=== PATIENT | female | born 1955 | race Two or more races ===

== ENCOUNTER 2022-05-29 16:15 | Emergency (ER) | payer MEDICARE ==
[~2022-05-29] VITALS: Ht 154.9 cm; Wt 64.4 kg
--- NOTE | 2022-05-29 16:30 | NUR ---
RECEVED PT 67 yrs female came from home c/o chest pain for 3 days goting worther today no sob or resopratory distres
--- NOTE | 2022-05-29 16:31 | NUR ---
EKG DONE AT BED SIDE
--- NOTE | 2022-05-29 16:45 | NUR ---
SEEN BY DR. HAYDEN
--- NOTE | 2022-05-29 17:20 | NUR ---
INSERTED ANGO CATHTER G 20 ON LT AC BLOOD DROW AAND SSENT TO LAB
[2022-05-29 17:56] LABS: BASOPHILS % (AUTO) 0.5 % (0.0-2.0); EOSINOPHILS % (AUTO) 2.9 % (0.0-6.0); HEMATOCRIT 38 % (33-45); HEMOGLOBIN 12.8 g/dL (11.5-14.8); LYMPHOCYTES # (AUTO) 1.2 K/uL (0.8-4.8); MEAN CORPUSCULAR HGB CONC 33 g/dl (31.0-36.0); MEAN CORPUSCULAR VOLUME 92 fL (82-100); MONOCYTES # (AUTO) 0.5 K/uL (0.1-1.30); MONOCYTES % (AUTO) 8.6 % (2.0-12.0); NEUTROPHILS # (AUTO) 4.4 K/uL (1.8-8.9); PLATELET COUNT (AUTO) 225 K/uL (150-450); RED BLOOD CELL COUNT(AUTO) 4.18 MIL/uL (4.0-5.2); WHITE BLOOD COUNT (AUTO) 6.4 K/uL (4.3-11.0)
[2022-05-29 18:09] LABS: CALCIUM, SERUM 9.1 mg/dL (8.5-10.1); CARBON DIOXIDE 30 mmol/L (21-32); CHLORIDE 106 mmol/L (98-107); CREATININE 0.8 mg/dL (0.6-1.3); GLUCOSE 93 mg/dL (74-106); POTASSIUM 3.9 mmol/L (3.5-5.1); SODIUM SERUM 143 mmol/L (136-145); UREA NITROGEN, BLOOD 8 mg/dL (7-18)
[2022-05-29 18:15] LABS: ALANINE AMINOTRANSFERASE 19 U/L (12-78); ALBUMIN 4.1 g/dL (3.4-5.0); ALKALINE PHOSPHATASE 101 U/L (46-116); ASPARTATE AMINOTRANSFERASE 16 U/L (15-37); BILIRUBIN,DIRECT 0.1 mg/dL (0.0-0.2); BILIRUBIN,TOTAL 0.4 mg/dL (0.2-1.0); TOTAL PROTEIN, SERUM 8.3 g/dL (6.4-8.2)
--- NOTE | 2022-05-29 18:30 | NUR ---
DINESES CHEST PAIN ORSOB
[2022-05-29] MEDS ORDERED: CARI350T PO (18:45)
--- NOTE | 2022-05-29 19:14 | NUR ---
Patient discharged to home in stable condition. Written and verbal after care instructions given. Patient verbalizes understanding of instruction. DINESES CHEST PAIN
[2022-05-29 19:34] VITALS: BP 152/95
== END 2022-05-29 19:35 | disposition home or self-care (01) ==
LOC: ER 16:21
DX: R07.89 Other chest pain (principal); I10 Essential (primary) hypertension; Z79.899 Other long term (current) drug therapy
CPT/HCPCS: 36415; 71045-TC; 80048-TC; 80076-TC; 84484-TC; 85025-TC